=== PATIENT | male | born 1985 | race Caucasian/White ===

== ENCOUNTER 2016-11-06 16:36 | Inpatient (IN) | payer MEDICAID ==
[~2016-11-06] VITALS: Ht 165.1 cm; Wt 86.4 kg
[~2016-11-06 16:36] MED LIST: RISP2TAB76 PO
[2016-11-06 17:11] LABS: BASOPHILS # (AUTO) 0.03 K/uL (0.00-0.20); BASOPHILS % (AUTO) 0.5 % (0.0-2.0); EOSINOPHILS # (AUTO) 0.22 K/uL (0.00-0.70); EOSINOPHILS % (AUTO) 3.06 % (1.0-6.0); HEMATOCRIT 47.8 % (41-53); HEMOGLOBIN 16.2 g/dL (13.5-17.5); LYMPHOCYTES # (AUTO) 2.6 K/uL (1.0-4.8); MEAN CORPUSCULAR HEMOGLOBIN 29.8 pg (26.0-34.0); MEAN CORPUSCULAR HGB CONC 33.8 G/dL (31.0-37.0); MEAN CORPUSCULAR VOLUME 88 fL (80-100); MONOCYTES # (AUTO) 0.6 K/uL (0.1-1.0); MONOCYTES % (AUTO) 7.6 % (2.0-9.0); NEUTROPHILS # (AUTO) 3.8 K/uL (1.8-7.7); NEUTROPHILS % (AUTO) 52.9 % (40.0-70.0); PLATELET COUNT (AUTO) 305 K/uL (150-450); RED BLOOD CELL COUNT(AUTO) 5.41 MIL/uL (4.50-5.90); RED CELL DISTRIBUTION WIDTH 13.6 % (11.5-14.5); WHITE BLOOD COUNT (AUTO) 7.2 K/uL (4.5-11.0)
[2016-11-06 17:40] LABS: ANION GAP 12 mmol/L (8-16); CALCIUM, TOTAL 9.1 mg/dL (8.8-10.5); CARBON DIOXIDE 25 mmol/L (22-29); CHLORIDE 102 mmol/L (98-107); CREATININE 0.99 mg/dL (0.60-1.30); GLOMERULAR FILTR. RATE CALC > 60 mL/min (>60); SODIUM SERUM 139 mmol/L (136-145); UREA NITROGEN, BLOOD 23 mg/dL (7-18)
[2016-11-06 17:46] LABS: ALANINE AMINOTRANSFERASE 52 U/L (12-78); ALBUMIN 4.1 g/dL (3.4-5.0); ASPARTATE AMINOTRANSFERASE 30 U/L (15-37); BILIRUBIN,TOTAL 0.4 mg/dL (0.1-1.0); TOTAL PROTEIN, SERUM 7.8 g/dL (6.4-8.2)
[2016-11-06] MEDS ORDERED: MAG HYDROX/AL HYDROX/SIMETH ES 30 ML SUSPENSION UDCUP PO PRN (20:45)
[2016-11-06] MEDS ORDERED: MAGNESIUM HYDROXIDE SUSPENSION 30 ML UDCUP PO PRN (20:45)
[2016-11-06] MEDS ORDERED: ACETAMINOPHEN 325 MG TABLET PO PRN (20:45)
[2016-11-06] MEDS ORDERED: ZOLPIDEM TARTRATE 10 MG TABLET PO PRN (20:45)
[2016-11-07 05:14] VITALS: BP 119/78
[2016-11-07] MEDS ORDERED: CloNIDine HCL 0.1 MG TABLET PO PRN (05:45)
[2016-11-07] MEDS ORDERED: ALBUTEROL SULFATE HFA 90 MCG/PUFF 8 GM INHALER IH PRN (05:45)
[2016-11-07] MEDS ORDERED: ACETAMINOPHEN 325 MG TABLET PO PRN (05:45)
[2016-11-07] MEDS ORDERED: PETROLATUM,WHITE 71 GM JELLY TP PRN (05:45)
[2016-11-07] MEDS ORDERED: BACITRACIN 28.4 GM OINTMENT TP PRN (05:45)
[2016-11-07] MEDS ORDERED: MAGNESIUM HYDROXIDE SUSPENSION 30 ML UDCUP PO PRN (05:45)
[2016-11-07] MEDS ORDERED: ONDANSETRON HCL 4 MG TABLET PO PRN (05:45)
[2016-11-07] MEDS ORDERED: MAG HYDROX/AL HYDROX/SIMETH ES 30 ML SUSPENSION UDCUP PO PRN (05:45)
[2016-11-07] MEDS ORDERED: LOPERAMIDE HCL 2 MG CAPSULE PO PRN (05:45)
[2016-11-07] MEDS ORDERED: BENZOCAINE/MENTHOL LOZENGE MM PRN (05:45)
[2016-11-07] MEDS: DOCUSATE SODIUM 100 MG CAPSULE PO SCH (08:27)
[2016-11-07] MEDS: OMEPRAZOLE 20 MG CAPSULE PO SCH (08:27)
[2016-11-07 08:31] VITALS: BP 112/66
[2016-11-07 16:00] VITALS: BP 116/68
[2016-11-07] MEDS: HALOPERIDOL 5 MG TABLET PO PRN (16:44)
[2016-11-07] MEDS: LORazepam 2 MG TABLET PO PRN (16:44)
[2016-11-07] MEDS: OLANZapine 5 MG RAPDIS TABLET PO SCH (20:39)
[2016-11-08 06:31] VITALS: BP 119/87
[2016-11-08 07:53] LABS: CHOL/HDL RATIO 4.5 (4.2-7.3)
[2016-11-08 08:00] VITALS: BP 115/65
[2016-11-08] MEDS: OMEPRAZOLE 20 MG CAPSULE PO SCH (09:26)
[2016-11-08] MEDS: DOCUSATE SODIUM 100 MG CAPSULE PO SCH (09:26)
[2016-11-08] MEDS: HALOPERIDOL 5 MG TABLET PO PRN ×2 (09:27→16:34)
[2016-11-08] MEDS: FLUoxetine HCL 20 MG CAPSULE PO SCH (09:27)
[2016-11-08] MEDS: LORazepam 2 MG TABLET PO PRN ×2 (09:27→16:34)
[2016-11-08] MEDS: IBUPROFEN 600 MG TABLET PO PRN (09:27)
[2016-11-08 14:15] VITALS: BP 117/71
[2016-11-08 16:00] VITALS: BP 124/77
[2016-11-08] MEDS: OLANZapine 5 MG RAPDIS TABLET PO SCH (20:20)
[2016-11-09 07:02] VITALS: BP 121/74
[2016-11-09 08:27] VITALS: BP 122/68
[2016-11-09] MEDS: DOCUSATE SODIUM 100 MG CAPSULE PO SCH (09:21)
[2016-11-09] MEDS: HALOPERIDOL 5 MG TABLET PO PRN ×2 (09:21→16:43)
[2016-11-09] MEDS: FLUoxetine HCL 20 MG CAPSULE PO SCH (09:21)
[2016-11-09] MEDS: LORazepam 2 MG TABLET PO PRN (09:21)
[2016-11-09] MEDS: OMEPRAZOLE 20 MG CAPSULE PO SCH (09:22)
[2016-11-09] MEDS: IBUPROFEN 600 MG TABLET PO PRN (10:02)
[2016-11-09 16:23] VITALS: BP 112/59
[2016-11-09] MEDS: OLANZapine 5 MG RAPDIS TABLET PO SCH (20:08)
[2016-11-10 06:25] VITALS: BP 107/69
[2016-11-10 08:27] VITALS: BP 102/60
[2016-11-10] MEDS: FLUoxetine HCL 20 MG CAPSULE PO SCH (08:59)
[2016-11-10] MEDS: DOCUSATE SODIUM 100 MG CAPSULE PO SCH (08:59)
[2016-11-10] MEDS: OMEPRAZOLE 20 MG CAPSULE PO SCH (08:59)
[2016-11-10] MEDS: LORazepam 2 MG TABLET PO PRN (08:59)
[2016-11-10 09:13] VITALS: BP 109/67
[2016-11-10] MEDS: IBUPROFEN 600 MG TABLET PO PRN (09:13)
[2016-11-10 16:00] VITALS: BP 110/87
[2016-11-10] MEDS: OLANZapine 5 MG RAPDIS TABLET PO SCH (20:31)
[2016-11-11 06:32] VITALS: BP 110/72
[2016-11-11 08:01] VITALS: BP 136/84
[2016-11-11] MEDS: FISH OIL/OMEGA-3 FATTY ACIDS 500 MG CAPSULE PO SCH (08:31)
[2016-11-11] MEDS: DOCUSATE SODIUM 100 MG CAPSULE PO SCH (08:32)
[2016-11-11] MEDS: OMEPRAZOLE 20 MG CAPSULE PO SCH (08:32)
[2016-11-11] MEDS: FLUoxetine HCL 20 MG CAPSULE PO SCH (08:32)
[2016-11-11] MEDS: LORazepam 2 MG TABLET PO PRN ×2 (08:33→14:53)
[2016-11-11] MEDS: NICOTINE 14 MG/24 HOUR PATCH TD SCH (12:20)
[2016-11-11 16:00] VITALS: BP 132/74
[2016-11-11] MEDS: OLANZapine 5 MG RAPDIS TABLET PO SCH (20:07)
[2016-11-12 06:49] VITALS: BP 114/81
[2016-11-12 08:27] VITALS: BP 122/83
[2016-11-12] MEDS: FLUoxetine HCL 20 MG CAPSULE PO SCH (08:27)
[2016-11-12] MEDS: NICOTINE 14 MG/24 HOUR PATCH TD SCH (08:27)
[2016-11-12] MEDS: OMEPRAZOLE 20 MG CAPSULE PO SCH (08:27)
[2016-11-12] MEDS: FISH OIL/OMEGA-3 FATTY ACIDS 500 MG CAPSULE PO SCH (08:27)
[2016-11-12] MEDS: DOCUSATE SODIUM 100 MG CAPSULE PO SCH (08:27)
[2016-11-12] MEDS: IBUPROFEN 600 MG TABLET PO PRN ×2 (08:27→16:30)
[2016-11-12] MEDS: LORazepam 2 MG TABLET PO PRN ×2 (08:27→14:52)
[2016-11-12 12:56] VITALS: BP 120/82
[2016-11-12] MEDS: HALOPERIDOL 5 MG TABLET PO PRN (14:52)
[2016-11-12 16:00] VITALS: BP 112/81
[2016-11-12] MEDS: OLANZapine 5 MG RAPDIS TABLET PO SCH (20:31)
[2016-11-13] MEDS: LORazepam 2 MG TABLET PO PRN (04:14)
[2016-11-13 04:20] VITALS: BP 118/78
[2016-11-13] MEDS ORDERED: FLUO-191 PO (08:36)
[2016-11-13] MEDS ORDERED: OLAN5Z PO (08:36)
[2016-11-13] MEDS ORDERED: DSS100 PO (08:36)
[2016-11-13] MEDS ORDERED: OMEG-12 PO (08:36)
[2016-11-13] MEDS ORDERED: OMEP20 PO (08:36)
[2016-11-13 08:37] VITALS: BP 130/73
[2016-11-13] MEDS: FISH OIL/OMEGA-3 FATTY ACIDS 500 MG CAPSULE PO SCH (09:00)
[2016-11-13] MEDS: OMEPRAZOLE 20 MG CAPSULE PO SCH (09:12)
[2016-11-13] MEDS: DOCUSATE SODIUM 100 MG CAPSULE PO SCH (09:13)
[2016-11-13] MEDS: NICOTINE 14 MG/24 HOUR PATCH TD SCH (09:13)
[2016-11-13] MEDS: FLUoxetine HCL 20 MG CAPSULE PO SCH (09:13)
== END 2016-11-13 09:40 | disposition home or self-care (01) | DRG 750 ==
LOC: EMS 16:47 → EEVIPCON 16:47 → B3A 11-07 03:30
PROVIDERS: ADMIT Psychiatry & Neurology Psychiatry; ATTEND Psychiatry & Neurology Psychiatry
DX: F25.0 Schizoaffective disorder, bipolar type (principal); F15.20 Other stimulant dependence, uncomplicated; F60.2 Antisocial personality disorder; Z59.0 Homelessness; F17.200 Nicotine dependence, unspecified, uncomplicated; G47.00 Insomnia, unspecified
CPT/HCPCS: 99285; 99406; G0480

== ENCOUNTER 2020-02-02 18:43 | Emergency (ER) | payer MEDICAID, OTHER ==
[~2020-02-02] VITALS: Ht 165.1 cm; Wt 93.2 kg
[~2020-02-02 18:43] MED LIST changes: +DSS100 PO; +FLUO-191 PO; +OLAN5TAB40 PO; +OMEG-12 PO; +OMEP20 PO; -RISP2TAB76 PO
[2020-02-02 19:37] VITALS: BP 132/90
[2020-02-02 20:24] LABS: ANION GAP 6 mmol/L (8-16); BASOPHILS % (AUTO) 0.6 % (0.0-2.0); CALCIUM, TOTAL 8.6 mg/dL (8.8-10.5); CARBON DIOXIDE 31 mmol/L (22-29); CHLORIDE 107 mmol/L (98-107); CREATININE 1.23 mg/dL (0.60-1.30); EOSINOPHILS % (AUTO) 1.2 % (1.0-6.0); GLOMERULAR FILTR. RATE CALC > 60 mL/min (>60); GLUCOSE,RANDOM 68 mg/dL (70-110); HEMATOCRIT 42.1 % (41-53); HEMOGLOBIN 14.3 g/dL (13.5-17.5); LYMPHOCYTES # (AUTO) 1.4 K/uL (1.0-4.8); LYMPHOCYTES % (AUTO) 23.6 % (22.0-44.0); MEAN CORPUSCULAR HEMOGLOBIN 29.9 pg (26.0-34.0); MEAN CORPUSCULAR VOLUME 88 fL (80-100); MONOCYTES # (AUTO) 0.5 K/uL (0.1-1.0); MONOCYTES % (AUTO) 8.7 % (2.0-9.0); NEUTROPHILS % (AUTO) 65.9 % (40.0-70.0); PLATELET COUNT (AUTO) 349 K/uL (150-450); POTASSIUM 3.1 mmol/L (3.5-5.1); RED BLOOD CELL COUNT(AUTO) 4.79 MIL/uL (4.50-5.90); RED CELL DISTRIBUTION WIDTH 13.7 % (11.5-14.5); SODIUM SERUM 144 mmol/L (136-145); UREA NITROGEN, BLOOD 23 mg/dL (7-18)
[2020-02-02 20:26] LABS: ALANINE AMINOTRANSFERASE 69 U/L (12-78); ALKALINE PHOSPHATASE 57 U/L (46-116); ASPARTATE AMINOTRANSFERASE 53 U/L (15-37); BILIRUBIN,TOTAL 0.5 mg/dL (0.1-1.0); TOTAL PROTEIN, SERUM 7.8 g/dL (6.4-8.2)
[2020-02-02] MEDS ORDERED: OLANZapine 5 MG TABLET PO ONE (20:45)
[2020-02-02] MEDS ORDERED: POTASSIUM CHLORIDE 10% 40 MEQ/30 ML LIQUID UDCUP PO ONE (21:00)
== END 2020-02-02 21:04 | disposition home or self-care (01) ==
LOC: EMS 18:43
DX: F41.9 Anxiety disorder, unspecified (principal); F15.10 Other stimulant abuse, uncomplicated; F20.0 Paranoid schizophrenia; E87.6 Hypokalemia; F17.210 Nicotine dependence, cigarettes, uncomplicated; Z59.0 Homelessness
CPT/HCPCS: 36415; 80053; 85025; 99283; G0480